=== PATIENT | female | born 1960 | race Caucasian/White ===

== ENCOUNTER 2022-04-14 05:48 | Day surgery (SDC) | payer BC, SELFPAY ==
--- NOTE | 2022-04-12 11:52 | EKG12_ITS ---
Test Reason : PREOP Blood Pressure : / mmHG Vent. Rate : 063 BPM Atrial Rate : 063 BPM P-R Int : 168 ms QRS Dur : 092 ms QT Int : 402 ms P-R-T Axes : 051 -18 015 degrees QTc Int : 411 ms Normal sinus rhythm Normal ECG Confirmed by JACQUELYN ISBELL, YADIRA ([id number]), technical writer and editor SAURABH BRICE ([id number]) on 04/13/2022 9:06:27 AM Referred By: Leslie Ruffin Confirmed By:YADIRA VALLADARES MD
[2022-04-12 13:39] LABS: Hemoglobin 14.9 g/dL (12.0-15.0); Mean Corp Hgb Conc 33.1 g/dL (32-36); Mean Corpuscular Hgb 28.8 pg (27.0-32.0); Mean Corpuscular Volume 86.9 fL (81-99); Mean Platelet Vol. 9.9 fl (6.2-12.0); Platelet Count 258 K/mm3 (150-450); RBC Distribution Width CV 13.2 % (11.6-14.6); Red Blood Count 5.18 M/mm3 (4.2-5.4); White Blood Count 7.5 K/mm3 (4.4-11.0)
[2022-04-12 14:00] LABS: Anion Gap 8 (5-15); BUN 16 mg/dL (7-18); BUN/Creat Ratio 22.6 RATIO (10-20); Calcium,Total 9.2 mg/dL (8.5-10.1); Chloride 103 mmol/L (98-107); Creatinine, Serum 0.71 mg/dL (0.55-1.02); EST Glomerular Filtration Rate 89 mL/min (>60); Est Glom Filt Rate - Afr Amer 107 mL/min (>60); Glucose 82 mg/dL (74-106); Potassium 3.7 mmol/L (3.5-5.1); Sodium Level 137 mmol/L (136-145)
--- NOTE | 2022-04-13 11:17 | PCM.HP.BLA ---
History and Physical Date of Admission: 04/14/22 Expand All Collapse AllExpand All by Default Pre-Op History and Physical ? HPI: The patient is a 61 year old female presenting for discussion regarding PMB, thickening of endometrial lining and stenotic cervix. Had a failed attempted an in office endometrial biopsy. Patient would like to proceed with hysteroscopy D&C possible polypectomy in the operating room. We will premedicate with Cytotec and evening primrose oil. ? pre-operative visit. She is scheduled for Hysteroscopy D&C and polypectomy, for stenotic cervix, PMB, Thickened endometrium on 04/14/22. Procedure discussed along with risks, benefits and complications. Other alternatives discussed for management. Consent form signed? Yes. ? ? PAST MEDICAL HISTORY No past medical history on file. ? ? PAST SURGICAL HISTORY PAST SURGICAL HISTORY Procedure Laterality Date ? D&C, DIAG AND/OR THERAPEUTIC ? 1978 ? REFRACTIVE SURGERY OD (RIGHT EYE) Bilateral 2007 ? TONSILLECTOMY & ADENOIDECTOMY <AGE 11 ? 1965 ? ? ? CURRENT MEDICATIONS Current Outpatient Medications Medication Sig Dispense Refill ? miSOPROStol (CYTOTEC) 200 mcg tablet Take two tablets PO night before procedure and two tablets morning of procedure 4 tablet 0 ? losartan (COZAAR) 50 mg tablet Take 50 mg by mouth once daily. ? ? ? metoprolol succinate ER (TOPROL XL) 100 mg Take 100 mg by mouth q 12 HR. ? ? ? hydroCHLOROthiazide (HYDRODIURIL, ESIDRIX) 12.5 mg capsule Take 12.5 mg by mouth once daily. ? ? ? cycloSPORINE (RESTASIS) 0.05 % ophthalmic emulsion Use 1 Drop in eyes. ? ? ? aspirin, enteric coated (ASPIRIN, ENTERIC COATED) 81 mg EC tablet Take 81 mg by mouth once daily. ? ? ? omega-3/dha/epa/fish oil (OMEGA-3 FISH OIL ORAL) Take 900 mg by mouth once daily. ? ? ? No current facility-administered medications for this visit. ? ? ALLERGIES: Lisinopril ? PERSONAL HISTORY: SOCIAL HISTORY Social History ? Tobacco Use ? Smoking status: Never ? Smokeless tobacco: Never Substance Use Topics ? Alcohol use: Yes ? ? Alcohol/week: 2.0 standard drinks ? ? Types: 2 Glasses of wine per week ? ? Comment: social ? Drug use: Never ? FAMILY HISTORY: FAMILY HISTORY No family history on file. ? REVIEW OF SYMPTOMS: negative except as noted above PHYSICAL EXAMINATION: ? VITALS: Blood pressure 140/78, weight 241 lb (109.3 kg). ? GENERAL: The patient is well nourished, well hydrated in no acute distress. , The patient is oriented to time, place, and person. NECK: full range of motion LUNGS: Clear to auscultation bilaterally. no wheezes, rhonchi or rales HEART: Regular rate and rhythm, Normal heart sounds, and No murmurs or gallops GENITALIA: deferred WET PREP: Not indicated ? IMPRESSION: Postmenopausal bleeding, stenotic cervix, thickening of the endometrium ? PLAN: Hysteroscopy, D&C, possible polypectomy ? Pt has been counseled on risks/benefits and alternatives of surgery including but not limited to anesthesia, bleeding, infection, uterine perforation with subsequent injury to pelvic structures including bowel, bladder, ureters and vessels. Pt wishes to proceed with surgery at this time. Reviewed the ultrasound can under overcall findings. If a polyp or fibroid is appreciated removal at that time will be indicated. ? Pre and postop instructions reviewed with the patient. Consent was signed today. All questions were answered to the best my ability. Patient was happy with the management plan. ? I have reviewed and updated past medical and surgical history, medications and allergies Leslie Milian MD
--- NOTE | 2022-04-14 | EMB_PTH ---
PATIENT: MANNY PALOMO LOC: [facility] – [place] U#:[id number] AGE/SX: 61/F ROOM: RE04/14/[address]: Dr. Leslie Ruffin, MDDOB: 1960 BED: DIS: 04/14/2022 SPEC #: [id number] RECD: 04/14/22 09:36 STATUS: ANIKA BUSH #: [id number] ZHANE: 04/14/22 00:[address]: Leslie Ruffin DEPT: SURGICAL PATHOLOGY RECD BY: Mook Adams Tissues: Endometrium, NOS Procedures: Surgery Specimen Level IV HEADER OPERATION: Hysteroscopy, D & C Symphion, endometrial dilation and biopsy PRE-OP DIAGNOSIS: Postmenopausal bleeding, stenotic cervix, thickening of endometrium TISSUE SUBMITTED: Endometrial biopsy MICROSCOPIC DIAGNOSIS Endometrium, biopsy: Scant strips of benign glandular mucosa. See comment. AM:nayla 04/15/2022 COMMENT The specimen primarily consists of mucus. Clinical correlation is suggested. MICROSCOPIC DESCRIPTION Slides are reviewed. GROSS DESCRIPTION Received in fixative is one container labeled with the patient's name and designated endometrial biopsy. The specimen consists of multiple irregular fragments of mucoidy, hurtado-white tissue that in aggregate measure 2.5 x 2 x 0.2 cm. The specimen is totally submitted in one cassette. / AM:nayla 04/14/2022 :5 CPT: 30058
[2022-04-14 06:33] VITALS: BP 148/83; PULSE 73; RESP 16; TEMP 37; O2SAT 97; BMI 36.1
[2022-04-14] MEDS: Lactated Ringers 1,000 ML 15 ML IV (06:42)
[2022-04-14] MEDS: Lubricating Jelly 60 GM Tube 30 GM (07:46)
[2022-04-14] MEDS: Vasopressin 20 UNITS/ML Vial (07:50)
--- NOTE | 2022-04-14 08:06 | EX.PCM.DISCH ---
Discharge Instructions Procedure D&C Diet Discharge Diet: No restrictions Activity May resume sexual activity in: 1 week Dressing / Incision Call your doctor if you observe: Fever of 101 or Higher, Inability to urinate, Using more than 1 pad per hour and Uncontrolled pain Follow Up Care Please Follow Up With: Leslie Ruffin MD When: 1-2 weeks post OP if you need an appointment please call [phone] Test Results: Test results from this visit will be discussed in further detail at your follow-up appointment, if applicable. Discharge Plan Admission Attending Provider: Leslie Ruffin Primary Care Provider: LOBITO DELEON Discharge Orders/Prescriptions Prescriptions: No Action losartan 50 mg Tablet 50 mg PO LUNCH metoprolol succinate 100 mg Tablet Extended Release 24 Hr 100 mg PO BID aspirin [Aspir-81] 81 mg Tablet,Delayed Release (Dr/Ec) 81 mg PO DAILY misoprostol 200 mcg Tablet 400 mcg SUBLINGUAL PRN PRN (Reason: PREOP) hydrochlorothiazide 12.5 mg Capsule 12.5 mg PO DAILY [place] 3 Fish Oil Capsule 900 mg PO DAILY [place] Oil 1,000 mg Capsule 2 cap PO QHS Rx Instructions: administer with meals Cyclosporine in [place] 0.1-0.25 % Drops 1 drp OPHTHALMIC (EYE) QHS ethyl alcohol [Nozin Popswab] 62 % Swab 1 ea TOPICAL DAILY Sambucol 10 ml PO/SL DAILY Referrals / Follow Up: LOBITO DELEON [Other] Disposition Disposition (needs filled in before D/C Order can be placed): Home, Self Care
--- NOTE | 2022-04-14 08:07 | OP.PCM_ITS ---
Report of Operation Date of Procedure: 04/14/22 Pre-Operative Diagnosis: stenotic cervix, thickened endometrium, pmb Post-Operative Diagnosis: same Surgery/Procedure Performed:: hysteroscopy, Dilation of cervix, endometrial biopsy Description of Surgical Findings:: stenotic cervix Surgeon: Leslie Ruffin Type of Anesthesia: General Special Medications: 10units of vasopressin in 100cc injectable saline - 10cc used. Specimen's removed: endometrial biopsy Drains: none Estimated Blood Loss (mL): <5cc Fluids Replaced: 700 Description of Procedure: Informed consent was obtained the patient was taken the operating room she was placed in supine position. She was given anesthesia. She was then placed in the [facility] where she was prepped and draped in the normal sterile fashion. At this time the weighted speculum was placed in the posterior fornix of vagina. Single-tooth tenaculum was used to gently grasp the anterior lip the cervix. cervix stenotic- unable to penetrate with smallest ju dilator- at this time 10units vasopressin in 100units injectable saline used- 10cc injected and then os was able to be penetrated at this time return of cervical mucous noted. cervix was then dilated and cavity sounded to 6.5cm. At this time an Endometrial biopsy was performed with a pipelle before hysteroscopy. hysteroscopy was then performed using normal saline as a distention medium. Cavity appeared scarred and no tubal ostia were visualized- unsure if this was a false tract or if this was the cavity and it was severely fibrosed tissue. There were no masses appreciated and cavity appeared intact. This time hysteroscopy was complete. scant Tissue from EMB will be sent to pathology for evaluation. Tenaculum removed. Good hemostasis. Instrument, lap count correct x 2. Vaginal Sweep was negative. Grafts/Implants Used: none Procedure Start Time: 07:46 Procedure Stop Time: 08:04 Complications none Admit VTE Documentation VTE Present on Admission: Yes VTE Mechan Device Prophylaxis: SCD's VTE Pharm Prophylaxis ordered?: No Reason prophylaxis not ordered:: Procedure Not Indicated
[2022-04-14 08:16] VITALS: BP 137/82; BP 148/83; PULSE 70; RESP 16; TEMP 36.7; O2SAT 95
[2022-04-14 08:30] VITALS: BP 139/83; BP 148/83; PULSE 67; RESP 16; O2SAT 97
[2022-04-14 08:45] VITALS: BP 141/94; BP 148/83; PULSE 66; RESP 16; O2SAT 98
[2022-04-14 08:50] VITALS: BP 122/80; BP 148/83; PULSE 65; RESP 16; TEMP 36.2; O2SAT 100
[2022-04-14 09:38] VITALS: BP 137/88; BP 148/83; PULSE 62; RESP 16; TEMP 36.8; O2SAT 100
== END 2022-04-14 09:58 | disposition home or self-care (01) ==
LOC: SDC 05:48 → AC 05:49
PROVIDERS: Referring Provider Obstetrics & Gynecology; Visit Provider Obstetrics & Gynecology
PROC: 0UB98ZZ Excision of Uterus, Via Natural or Artificial Opening Endoscopic (ICD-10-PCS; CPT 58558; principal; 2022-04-14 07:15)
DX: N95.0 Postmenopausal bleeding (principal); R93.89 Abnormal findings on diagnostic imaging of other specified body structures; N88.2 Stricture and stenosis of cervix uteri; I10 Essential (primary) hypertension
CPT/HCPCS: 58558; 00952; 36415; 80048; 85027; 88305; 93005; J7120; J2405